=== PATIENT | female | born 1990 | race Caucasian/White ===

== ENCOUNTER 2020-05-06 06:14 | Inpatient (IN) | payer OTHER ==
[~2020-05-06 06:14] MED LIST: COLACE 100MG C100 MG PO
[2020-05-06 07:19] LABS: HEMOGLOBIN 11.1 gm/dl (12.3-15.3); RED BLOOD COUNT 4.13 M/UL (4.00-5.10); WHITE BLOOD COUNT 16.6 K/UL (4.5-11.0)
[2020-05-07 06:37] LABS: HEMOGLOBIN 9.4 gm/dl (12.3-15.3)
[2020-05-07] MEDS ORDERED: IBUPROFEN600 MG PO (11:57)
[2020-05-07] MEDS ORDERED: DOCUSATE SODIU100 MG PO (11:57)
[2020-05-07] MEDS ORDERED: LORTAB 5-325 M1 EACH PO (11:57)
== END 2020-05-07 15:54 | disposition home or self-care (01) | DRG 787 ==
LOC: OB 06:14
PROVIDERS: ADMIT Obstetrics & Gynecology
PROC: 10D00Z1 Extraction of Products of Conception, Low, Open Approach (ICD-10-PCS; principal; 2020-05-06 08:09)
DX: O14.94 Unspecified pre-eclampsia, complicating childbirth (principal); O98.82 Other maternal infectious and parasitic diseases complicating childbirth; Z20.828 Contact with and (suspected) exposure to other viral communicable diseases; Z3A.38 38 weeks gestation of pregnancy; Z37.0 Single live birth; O34.211 Maternal care for low transverse scar from previous cesarean delivery; N85.8 Other specified noninflammatory disorders of uterus; M79.7 Fibromyalgia; M06.9 Rheumatoid arthritis, unspecified; O99.02 Anemia complicating childbirth; D64.9 Anemia, unspecified; O75.89 Other specified complications of labor and delivery; Z90.49 Acquired absence of other specified parts of digestive tract; B95.1 Streptococcus, group B, as the cause of diseases classified elsewhere; O99.334 Smoking (tobacco) complicating childbirth; F17.210 Nicotine dependence, cigarettes, uncomplicated; Z28.21 Immunization not carried out because of patient refusal
CPT/HCPCS: 36415; 81001; 82800; 85014; 85018; 85025; C9113; J0690; J1885; J2250; J2274; J2590; J3010; J7120; U0002